=== PATIENT | male | born 1980 | race Two or more races ===

== ENCOUNTER 2018-11-06 16:07 | Emergency (ER) | payer MEDICAID, OTHER ==
[~2018-11-06] VITALS: Ht 182.9 cm; Wt 72.6 kg
[2018-11-06 17:11] VITALS: BP 137/90
[2018-11-06] MEDS ORDERED: HYDROcodone-ACET 10/325MG TAB PO ONE (17:15)
== END 2018-11-06 17:21 | disposition home or self-care (01) ==
LOC: ER 16:14
DX: S42.021A Displaced fracture of shaft of right clavicle, initial encounter for closed fracture (principal); Z88.6 Allergy status to analgesic agent; V28.0XXA Motorcycle driver injured in noncollision transport accident in nontraffic accident, initial encounter; Y93.89 Activity, other specified; Y99.8 Other external cause status; Y92.410 Unspecified street and highway as the place of occurrence of the external cause
CPT/HCPCS: 73030

== ENCOUNTER 2021-10-09 17:43 | Emergency (ER) | payer MEDICAID ==
[~2021-10-09] VITALS: Ht 185.4 cm; Wt 72.6 kg
[2021-10-09 17:43] VITALS: BP 123/84
== END 2021-10-09 21:33 ==
LOC: ER 17:43
DX: S05.11XA Contusion of eyeball and orbital tissues, right eye, initial encounter (principal); J45.909 Unspecified asthma, uncomplicated; Z88.6 Allergy status to analgesic agent; V43.52XA Car driver injured in collision with other type car in traffic accident, initial encounter; Y93.89 Activity, other specified; Y92.488 Other paved roadways as the place of occurrence of the external cause; Y99.8 Other external cause status